=== PATIENT | female | born 1945 | race Caucasian/White ===

== ENCOUNTER → 2022-05-27 13:54 | Outpatient (REF) | payer MEDICARE, SELFPAY ==
--- NOTE | 2022-05-27 14:00 | CA_ITS ---
Transthoracic Echocardiogram Patient (Last, First, Middle): Tammie Butler, Gender: Female Date of : 1945 Age: 76 Procedure Date: 05/27/2022 Procedure Type: Transthoracic Echocardiogram Location: [place] Height: 172.72 cm Weight: 81.65 kg BSA: 1.95 m2 Heart Rate: bpm BP: 118 / 60 mmHg Spooling Operator: Referring MD: Diana Martinez NP Symptoms: PALPITATIONS Study Quality: Fair ECG Rhythm: Sinus Conclusions: - The left ventricular systolic function is mildly decreased. The calculated ejection fraction is 51% by biplane method. - There is mild global hypokinesis. - LV peak GLS -14.9% (diminished strain). - No obvious valvular pathology seen on this study. Findings Left Ventricle Normal left ventricular cavity size. There is mildly increased left ventricular wall thickness. The left ventricular systolic function is mildly decreased. The calculated ejection fraction is 51% by biplane method. There is mild global hypokinesis. Diastolic function is normal for age. LV peak GLS -14.9% (diminished strain). Right Ventricle Normal right ventricular cavity size and systolic function. Atria The left atrium is mildly dilated. The right atrium is normal in size. Aortic Valve There is a normal trileaflet aortic valve. There is mild calcification of the aortic valve. There is no aortic valve stenosis. There is no aortic valve regurgitation. Mitral Valve There is mild mitral annular calcification. There is no mitral valve regurgitation. There is no mitral valve stenosis. Pulmonic Valve There is mild pulmonic valve regurgitation. Tricuspid Valve Normal tricuspid valve structure. There is no tricuspid valve regurgitation. There is no evidence of pulmonary hypertension. Great Vessels The asc aorta is normal in size. Venous The inferior vena cava is normal in size and collapses greater than 50% with inspiration. Pericardium/Pleural There is a trivial pericardial effusion. Prior Study Comparison No prior study available for comparison. Recommendations, Care & Conclusions No obvious valvular pathology seen on this study. Measurements 2D Linear Measurements IVSd: 1.02 0.6-0.9/0.6-1.0 cm LVIDd: 4.85 3.9-5.3/4.2-5.9 cm LVIDd Index: 2.49 2.4-3.2/2.2-3.1 cm/m2 LVIDs: 3.55 2.0-3.6 cm LVPWd: 1.09 0.7-1.1 cm Ao Root: 2.70 2.1-3.5 cm LA Diam: 3.50 2.7-3.8/3.0-4.0 cm LAIDs Index: 1.79 1.5-2.3 cm/m2 LV Mass: 231.99 67-162/88-224 g LV Mass Index: 118.97 43-95/49-115 g/m2 LVOT Diam: 2.00 3.0+(-)1.3 cm 2D Systolic Function EF 4C: 50.90 >55% EF 2C: 50.70 >55% EF BiP: 51.30 >55% Mitral Valve MV Pk E: 0.53 MV PK A: 0.90 MV Decel Time: 319.00 E/A: 0.60 E'Lateral: 5.33 E'Medial: 3.48 E/E' Med: 15.30 E/E' Lat: 10.00 PHT: 93.00 MVA PHT: 2.37 Decel Williams: 1.66 Aortic Valve AoV Pk Steffen: 1.05 AoV Mn Steffen: 0.83 AoV VTI: 0.34 AoV Pk Grad: 4.00 Aov Mn Grad: 3.00 MAIRA Cont.VTI: 1.77 LVOT LVOT Pk Steffen: 0.75 LVOT Mn Steffen: 0.51 LVOT VTI: 0.19 LVOT Pk Grad: 2.00 LVOT Mn Grad: 1.00 LVOT Diam: 2.00 LVOT Area: 3.14 Diastolic Function MV Pk E: 0.53 MV Pk A: 0.90 E/A: 0.60 E'Medial: 3.48 E/E' Med: 15.30 E' Laterial: 5.33 E/E' Lat: 10.00 Right Ventricle TAPSE (mm): 29.00 TVS' Steffen: 12.00 Tricuspid Valve TR Pk Steffen: 2.05 TR Pk Grad: 17.00 RA Press: 3.00 RVSP: 20.00 Great Vessels Aorta Ao Root-2D: 2.70 2.0-3.7 cm Ao Asc: 3.30 2.1-3.4 cm Pulmonary Valve PV Pk Steffen: 0.98 Peak PV Grad: 4.00 Updated in Other Vendor System with Status of Final Juan Mendez MD electronically signed on 05/28/2022 11:12:42 AM with status of Final
== END ==
LOC: HO.CARD 13:54
PROVIDERS: PCP Nurse Practitioner Primary Care; Visit Provider Nurse Practitioner Adult Health
DX: R00.2 Palpitations (principal)
CPT/HCPCS: 93306; 93356

== ENCOUNTER 2023-11-28 14:14 | Emergency (ER) | payer MEDICARE, SELFPAY ==
--- NOTE | ~2023-11-28 | XR_ITS ---
EXAMINATION: XR ANKLE, LEFT CLINICAL INFORMATION: Repeat examination with lateral and mortise view, distal fibular fracture. COMPARISON: Radiograph left ankle earlier today. TECHNIQUE: Two views of the left ankle. FINDINGS: Nondisplaced fracture of the distal fibula at the level of the ankle mortise. Trace asymmetric widening of the lateral space of the ankle mortise. Surrounding soft tissue swelling. XR/XR ankle LT 2V IMPRESSION: Nondisplaced fracture of the distal fibula at the level of the ankle mortise with trace asymmetric widening of the lateral space of the ankle mortise. Electronically signed by: Parul Segal MD 11/28/2023 05:33 PM EDT
--- NOTE | ~2023-11-28 | XR_ITS ---
EXAMINATION: XR ANKLE, LEFT CLINICAL INFORMATION: Fall COMPARISON: None available. TECHNIQUE: AP, lateral, and mortise views of the left ankle. FINDINGS: Questionable cortical disruption along the posterior aspect of the distal fibula along the level ankle mortise versus summation artifact. Correlation with point tenderness. Ankle mortise is symmetric. Tiny plantar calcaneal heel spur. Enthesopathy at the Achilles tendon insertion site. Clusters and alignment are otherwise maintained. Soft tissue swelling about the ankle. XR/XR ankle LT min 3V IMPRESSION: 1. Questionable cortical disruption along the posterior aspect of the distal fibula along the level of the ankle mortise versus summation artifact, best appreciated on lateral projection. Correlation with point tenderness. 2. Ankle mortise is symmetric. 3. Tiny plantar calcaneal heel spur. 4. Enthesopathy at the Achilles tendon insertion site. 5. Soft tissue swelling about the ankle. Electronically signed by: Lino Ballesteros MD 11/28/2023 04:47 PM EDT
[2023-11-28 14:18] VITALS: BP 148/82; BP 159/74; PULSE 61; PULSE 63; RESP 18; TEMP 36.6; O2SAT 97; O2SAT 98; BMI 29.2
[2023-11-28] MEDS: Acetaminophen 325 MG TABLET 975 MG PO (14:54)
--- NOTE | 2023-11-28 17:10 | ED.LOWEXIN ---
HPI - Extremity Injury (Lower) General Chief Complaint: Extremity Injury, Lower Stated Complaint: FALL/LEFT ANKLE PAIN/NO THINNERS Time Seen by Provider: 11/28/23 16:57 Source: patient, family and EMS Mode of arrival: EMS Limitations: no limitations History of Present Illness ED Provider: Dr. Jessica Levy HPI Narrative: patient comes to the emergency room complaining of left ankle pain. Patient states that patient fell, sprain her ankle While doing yard work at home. Patient denies hitting her head or losing consciousness. Patient states that she needed 2 people to help her get up. Patient unable to bear weight. Patient denies being on blood thinners. Related Data Previous Rx's ?Medication ?Instructions ?Recorded tramadol 50 mg tablet 50 mg PO BID #8 tabs 11/28/23 Allergies Allergy/AdvReac Type Severity Reaction Status Date / Time epinephrine Allergy Shakiness Verified 11/28/23 14:24 Penicillins [PCN] Allergy Unknown Verified 11/28/23 14:24 Review of Systems Review of Systems: Constitutional : No Weight loss, No Fever, No Chills, No Night Sweats, No Fatigue, No Malaise ENT/Mouth : No Hearing loss, No Ear Pain, No Nasal Congestion, No Sinus Pain, No Hoarseness, No sore throat, No Rhinorrhea, No Swallowing Difficulty Eyes: No Eye Pain, No Swelling, No Redness, No Foreign Body, No Discharge, No Vision Changes Cardiovascular : No Chest Pain, No SOB, No Dyspnea on Exertion, No Orthopnea, No Edema, No Palpitations Respiratory : No Cough, No Sputum, No Wheezing, No Smoke Exposure, No Dyspnea Gastrointestinal : No Nausea, No Vomiting, No Diarrhea, No Constipation, No abdominal Pain, No Hematochezia, No Melena Genitourinary : no irregular bleeding, No Dysuria, No Urinary Frequency, No Hematuria, No Urinary Incontinence, No Urgency, No Flank Pain, No Urinary Flow Changes, No Hesitancy Musculoskeletal : complaining of left ankle pain, No Myalgias, No Joint Swelling Skin : No Skin Lesions, No rash Neuro : No Weakness, No Numbness, No Paresthesias, No Loss of Consciousness, No Dizziness, No Headache Psych : No Anxiety/Panic, No Depression, No SI/HI/AH/VH, No Social Issues, Heme/Lymph: No Bruising, No Bleeding,No Lymphadenopathy Endocrine : No Polyuria, No Polydipsia, No Temperature Intolerance [facility] Past Medical History Medical History (Updated 11/28/23 @ 17:48 by Jessica Levy MD) Hypertension Social History Social History Smoked in Last 30 Days: No Use of substances other than those prescribed or required for medical reasons: No Advance Directives: No Advance Directives Information Provided: Yes Physical Exam Vital Signs: Vital Signs: Last Vital Signs Temp 98 F 11/28/23 14:18 Pulse 63 11/28/23 14:18 Resp 18 11/28/23 14:18 BP 159/74 H 11/28/23 14:18 Pulse Ox 98 11/28/23 14:18 BMI result Body Mass Index 29.2 Const: Other: Appearance: Alert. Oriented X3. No acute distress. Eyes: Pupils equal, round and reactive to light. ENT: Pharynx normal. Neck: Normal inspection. Neck supple. No lymph nodes noted. No crepitus CVS: Normal heart rate and rhythm. Pulses normal. Normal S1 and S2 Respiratory: No respiratory distress. Breath sounds normal. No Wheezing. No rales Abdomen: Soft and nontender. No rigidity. No distention. Skin: Skin warm and dry. Normal skin color. Normal skin turgor. Extremities: patient has [id number] swelling around the lateral malleolus of the left ankle, no pain in the lateral edge of the left foot. Neuro: Oriented X 3. No motor deficit. No sensory deficit. Moving all extremities. No slurred speech. CN 2 through 12 grossly intact Psych: calm, cooperative, normal affect Medications Administered Discontinued Medications Generic Name Dose Route Start Last Admin Trade Name Chilo PRN Reason Stop Dose Admin Acetaminophen 975 mg 11/28/23 14:51 11/28/23 14:54 Acetaminophen 325 Mg Tablet PO 11/28/23 14:52 975 mg ONCE ONE Administration Tramadol HCl 50 mg 11/28/23 17:06 11/28/23 17:18 Tramadol Hcl 50 Mg Tablet PO 11/28/23 17:07 50 mg ONCE ONE Administration Medical Decision Making Medical Decision Making [facility] Narrative: - my interpretation of x-ray of the ankle, likely nondisplaced fracture of the fibula - patient was given p.o. acetaminophen with no significant improvement. Then patient was given tramadol. - Patient's foot put in a splint, crutches provided Differential Diagnosis Differential Diagnoses: The differential diagnosis associated with the presentation includes ( Ankle sprain, ankle fracture, dislocation, contusion) Independent Interpretation I performed an independent interpretation of an: Plain X-Ray Radiology Impression Discussion of test interpretation with radiology: I have reviewed the radiologist's reading. Radiologist Impression: Nondisplaced fracture of the distal fibula at the level of the ankle mortise. Trace asymmetric widening of the lateral space of the ankle mortise. Surrounding soft tissue swelling. XR/XR ankle LT 2V IMPRESSION: Nondisplaced fracture of the distal fibula at the level of the ankle mortise with trace asymmetric widening of the lateral space of the ankle mortise. Discharge Plan Discharge Clinical Impression: Closed fibular fracture Patient Disposition: Home, Self-Care Instructions: Ankle Fracture (ED) Additional Instructions: Please follow-up with your primary care physician tomorrow. If you have any worsening or new symptoms, please return to the emergency room or call 911 Prescriptions: New tramadol 50 mg tablet 50 mg PO BID Qty: 8 0RF Print Language: Surinamese
[2023-11-28] MEDS: traMADoL HCL 50 MG TABLET PO (17:18)
[2023-11-28 18:33] VITALS: BP 156/67; PULSE 67; RESP 18; TEMP 36.5; O2SAT 92
--- NOTE | 2023-11-28 18:34 | PC.NURSE ---
pt moves very slowly with the crutches and has a difficult time getting up off the bed, pt/ want to go home, not interested in PT/case management or snf. also not interested in an ambulance to get her home
[2023-11-28 18:42] VITALS: BP 156/67; PULSE 67; RESP 18; TEMP 36.5; O2SAT 92
== END 2023-11-28 18:44 | disposition home or self-care (01) ==
PROVIDERS: Emergency Provider Emergency Medicine; PCP Nurse Practitioner Primary Care
DX: S82.402A Unspecified fracture of shaft of left fibula, initial encounter for closed fracture (principal); M25.572 Pain in left ankle and joints of left foot; W19.XXXA Unspecified fall, initial encounter; Y93.89 Activity, other specified; Y92.89 Other specified places as the place of occurrence of the external cause; Y99.8 Other external cause status
CPT/HCPCS: 29515; 73600; 73610; 99284

== ENCOUNTER 2023-12-08 13:39 | Outpatient (AMB) | payer MEDICARE, SELFPAY ==
--- NOTE | 2023-12-08 13:53 | A.OFFVIS_ITS ---
Intake Visit Reasons: FC- LT ankle fracture Intake Note: Tammie a 77 year old female who presents today for an ER follow up of left ankle, DOI 11/28/23 Patient reports having a fall while on an incline at home, she presented to [facility] [place] day where xrays were taken and referred to orthopedics. Currently her most discomfort comes in the morning and at night. States that she passed out and fell off the toilet due to her pain and EMT had came and helped. She has been avoiding applying pressure. Numbness and tingling. States her tabatha bandage feels tight and is unable to use crutches. Allergies epinephrine Allergy (Verified 12/08/23 14:00) Shakiness Penicillins [PCN] Allergy (Verified 12/08/23 14:00) Unknown HPI HPI FC- LT ankle fracture: Details: 77-year-old female who presents to the office today for an ER follow-up of left ankle injury, 11/28/23. She reports she sustained a fall while on an incline at home. She was seen at ER the same day where x-rays were performed and she was referred to our office. She currently states she has pain and discomfort in her ankle that is aggravated in the mornings and at night. She also experiences numbness and tingling in her ankle. She has been avoiding applying pressure on her left ankle. She states her tabatha bandage feels tight and she is unable to use crutches. She reports she passed out and fell off the toilet due to her pain and EMT had come to helped. [facility] Medical History (Updated 12/08/23 @ 14:52 by Marc Vides PA-C) Hypertension Social History (Updated 12/08/23 @ 14:00 by ADRY Vizcaino) Patient Tobacco Use Status: Never used Tobacco Current occupational status: unemployed Review of Systems Const All systems reviewed & are unremarkable except as noted in HPI and below Physical Exam Const General: cooperative, healthy appearing, comfortable, no acute distress, well developed and alert Orientation/consciousness: patient oriented x3 HEENT Head: Yes normal to inspection, Yes normocephalic and Yes atraumatic Eyes General: appearance normal, both eyes and all related structures Resp Effort & Inspection: normal respiratory effort and able to speak in complete sentences Cardio Rate: regular rate Peripheral pulses: Peripheral pulses 2+ throughout GI Palpation (GI): Soft to palpation Skin Lesions: no lesions Rashes: no rashes Neuro General: patient oriented x3 Extrem Other: Left ankle: Normal to inspection with diffuse swelling over the medial and lateral malleolus with tenderness along the soft tissues. Mild discomfort along the posterior aspect of the ankle, no deformity along the Achilles tendon, negative Romero?s. No pain along the syndesmosis or anterior tibia. No laxity, NVI. Office Procedures AMB Fracture Care Fracture Billing Code: Fracture Billing Code Results Reviewed Results Reviewed: XR ankle LT 2V 11/28/23 IMPRESSION: Nondisplaced fracture of the distal fibula at the level of the ankle mortise with trace asymmetric widening of the lateral space of the ankle mortise. Assessment & Plan Assessment & Plan (1) Closed left ankle fracture: Code(s): S82.892A - Other fracture of left lower leg, initial encounter for closed fracture Category: Medical Plan She was placed in a tall boot weight bearing as tolerated. She can remove the boot for rest and hygiene. I recommend she performs elevation above the heart level to help with swelling. I would like to see her back in 4 weeks with new x- rays, sooner if needed. Orders: Referrals [facility] Referral S82.892A - Other fracture of left lower leg, initial encounter for closed fracture Patient Instructions: Scribed for Marc Vides PA-C, by Tj Schaefer medical charge entry specialist, on 12/08/2023 at 1:30 PM EST.? I, Marc Vides PA-C, have personally reviewed and agree with the information entered by the scribe. Coding Level of Care Code New Pt Level 3 (45472) Complex EM visit Add On G2211 Diagnoses Closed left ankle fracture S82.892A CPT Codes Fracture Care - Fracture Billing Code: Fracture Billing Code ([id number])
== END 2023-12-08 15:05 | disposition home or self-care (01) ==
LOC: HO.HOS 13:39
PROVIDERS: PCP Nurse Practitioner Primary Care; Visit Provider Physician Assistant
DX: S82.892A Other fracture of left lower leg, initial encounter for closed fracture (principal)
CPT/HCPCS: 99203; G2211

== ENCOUNTER → 2023-12-08 13:39 | Outpatient (BNVA) | payer MEDICARE, SELFPAY | PROVIDERS: PCP Nurse Practitioner Primary Care; Visit Provider Physician Assistant | DX: S82.892A Other fracture of left lower leg, initial encounter for closed fracture (principal); W19.XXXA Unspecified fall, initial encounter; Y93.9 Activity, unspecified; Y92.9 Unspecified place or not applicable; Y99.9 Unspecified external cause status | CPT/HCPCS: 99202 ==

== ENCOUNTER 2024-01-05 11:10 | Outpatient (REF) | payer MEDICARE, SELFPAY | END 2024-01-05 11:11 | disposition home or self-care (01) | LOC: HO.HOSX 11:10 | PROVIDERS: Visit Provider Physician Assistant | DX: M25.572 Pain in left ankle and joints of left foot (principal); S82.892D Other fracture of left lower leg, subsequent encounter for closed fracture with routine healing | CPT/HCPCS: 73610; 99212 ==

== ENCOUNTER 2024-01-05 11:27 | Outpatient (AMB) | payer MEDICARE, SELFPAY ==
--- NOTE | 2024-01-05 11:33 | A.OFFVIS_ITS ---
Vital Signs 01/05/24 11:45 Height 5 ft 8 in Weight 191 lb BMI 29.0 Intake Visit Reasons: OV- LT ankle fracture, DOI 11/28/23 Intake Note: Tammie a 77 year old female who presents today for a follow up of left ankle fx, DOI 11/28/23. X-rays updated. Patient reports she has had improvement, however she continues to have pain and swelling. Her swelling and pain makes it dif ficult to sleep at night. States left knee tendon rubbing. Finds some relief with swelling with use of icing and elevation. Allergies epinephrine Allergy (Verified 01/05/24 11:44) Shakiness Penicillins [PCN] Allergy (Verified 01/05/24 11:44) Unknown Medication List - Last Reconciled 01/05/24 by Marc Vides PA-C lisinopril 5 mg PO DAILY pregabalin 75 mg PO BID tramadol 50 mg PO BID HPI HPI OV- LT ankle fracture, DOI 11/28/23: Details: 78-year-old female who returns to the office today for a follow-up of left ankle fracture, 11/28/23. She states she has improvement however she continues to have pain and swelling in her ankle that makes her difficult to sleep at night. She also feels her left knee tendon is rubbing. She is working on home therapy as instructed. She has been walking with her boot with benefits. She finds mild swelling relief with icing and elevation. [facility] Medical History (Updated 01/05/24 @ 13:40 by Marc Vides PA-C) Hypertension Social History Patient Tobacco Use Status: Never used Tobacco Current occupational status: unemployed Review of Systems Const All systems reviewed & are unremarkable except as noted in HPI and below Physical Exam Vital Signs: BMI result Body Mass Index 29.0 Const General: cooperative, healthy appearing, comfortable, no acute distress, well developed and alert Orientation/consciousness: patient oriented x3 HEENT Head: Yes normal to inspection, Yes normocephalic and Yes atraumatic Eyes General: appearance normal, both eyes and all related structures Resp Effort & Inspection: normal respiratory effort and able to speak in complete sentences Cardio Rate: regular rate Peripheral pulses: Peripheral pulses 2+ throughout GI Palpation (GI): Soft to palpation Skin Lesions: no lesions Rashes: no rashes Neuro General: patient oriented x3 Extrem Other: Left ankle: Normal to inspection with trace swelling over the medial and lateral malleolus with tenderness along the soft tissues. No discomfort along the posterior aspect of the ankle, no deformity along the Achilles tendon, negative Romero?s. No pain along the syndesmosis or anterior tibia. No laxity, NVI. Results Reviewed Results Reviewed: XR ankle LT 2V obtained today show interval healing with intact ankle mortise Assessment & Plan Assessment & Plan (1) Closed left ankle fracture: Code(s): S82.892A - Other fracture of left lower leg, initial encounter for closed fracture Category: Medical Qualifiers: Encounter type: subsequent encounter Fracture healing: with routine healing Qualified Code(s): S82.892D - Other fracture of left lower leg, subsequent encounter for closed fracture with routine healing Plan She will transition from a boot to a lace up ankle brace. She will continue with physical therapy to work on ROM, gentle strength and proprioceptive training. I did update her physical therapy referral for home physical therapy and she will see me back in 6 weeks with x-rays if she continues to have pain, otherwise she will follow-up as needed. Orders: Orders XR ankle LT min 3V Today M25.572 - Pain in left ankle and joints of left foot Patient Instructions: Scribed for Marc Vides PA-C, by Tj Schaefer certified medical biller, on 01/05/2024 at 11:45 AM EST.? I, Marc Vides PA-C, have personally reviewed and agree with the information entered by the scribe. Coding Level of Care Code Global (63865) Diagnoses Closed fracture of left ankle with routine healing, subsequent encounter S82.892D Encounter type: subsequent encounter Fracture healing: with routine healing
[2024-01-05 11:45] VITALS: BMI 29.0
== END 2024-01-05 12:10 | disposition home or self-care (01) ==
PROVIDERS: PCP Nurse Practitioner Primary Care; Visit Provider Physician Assistant
DX: S82.892D Other fracture of left lower leg, subsequent encounter for closed fracture with routine healing (principal)
CPT/HCPCS: 99213

== ENCOUNTER → 2024-01-05 11:28 | Outpatient (BNV) | payer MEDICARE, SELFPAY | PROVIDERS: Visit Provider Radiology Diagnostic Radiology | DX: S82.402D Unspecified fracture of shaft of left fibula, subsequent encounter for closed fracture with routine healing (principal) | CPT/HCPCS: 73610 ==

== ENCOUNTER 2024-02-16 08:42 | Outpatient (REF) | payer MEDICARE, SELFPAY ==
--- NOTE | ~2024-02-16 | XR_ITS ---
CLINICAL HISTORY: M25.572 - Pain in left ankle and joints of left foot 3 view left ankle Comparison: DX - XR ANKLE LT MIN 3V - 01/05/24 11:28 EST Findings: Decreased bone mineralization. No acute fracture deformity. Degenerative spurring at the achilles tendon insertion and the origin of the plantar fascia on the calcaneus. Diffuse soft tissue swelling about the ankle. There is a probable small ankle joint effusion. No radiopaque foreign body. Ankle mortise is in anatomic alignment. IMPRESSION: 1. Small ankle joint effusion. No acute fracture deformity. This document has been electronically signed by: Bryan Amin MD on 02/18/2024 18:24:25
== END 2024-02-16 08:43 | disposition home or self-care (01) ==
LOC: HO.HOSX 08:42
PROVIDERS: Visit Provider Physician Assistant
DX: M25.572 Pain in left ankle and joints of left foot (principal); S82.892D Other fracture of left lower leg, subsequent encounter for closed fracture with routine healing
CPT/HCPCS: 73610; 99212

== ENCOUNTER 2024-02-16 10:28 | Outpatient (AMB) | payer MEDICARE, SELFPAY ==
--- NOTE | 2024-02-16 10:39 | A.OFFVIS_ITS ---
Vital Signs 02/16/24 10:44 Height 5 ft 8 in Weight 191 lb BMI 29.0 Intake Visit Reasons: OV- 6 WK f/u LT ankle fx w/xray, DOI 11/28/23 Intake Note: Tammie a 78 year old female who presents today for a follow up of left ankle fx, DOI 11/28/23. Patient reports improvement in pain and is able to walk without cane. She continues to have swelling that increases at the end of the day. States shooting pain in her great toe. She has concerns of a bumpy rash located at the lateral aspect of ankle. She has been using OTC cortisone cream which has helped. Patient discontinued use of ankle brace, as PT told her after a couple of days she can stop using. Allergies epinephrine Allergy (Verified 02/16/24 10:47) Shakiness Penicillins [PCN] Allergy (Verified 02/16/24 10:47) Unknown Medication List - Last Reconciled 02/16/24 by Marc Vides PA-C lisinopril 5 mg PO DAILY pregabalin 75 mg PO BID HPI HPI OV- 6 WK f/u LT ankle fx w/xray, DOI 11/28/23: Details: 78-year-old female returns to the office today for follow-up left ankle fracture date of injury 11/28/2023. She has discontinued the boot and the lace-up ankle brace. She continues to work on her exercise program without pain. She continues to have intermittent swelling. Overall she is doing well with activities. [facility] Medical History (Updated 01/05/24 @ 13:40 by Marc Vides PA-C) Hypertension Social History Patient Tobacco Use Status: Never used Tobacco Current occupational status: unemployed Review of Systems Const All systems reviewed & are unremarkable except as noted in HPI and below Physical Exam Vital Signs: BMI result Body Mass Index 29.0 Const General: cooperative, healthy appearing, comfortable, no acute distress, well developed and alert Orientation/consciousness: patient oriented x3 HEENT Head: Yes normal to inspection, Yes normocephalic and Yes atraumatic Eyes General: appearance normal, both eyes and all related structures Resp Effort & Inspection: normal respiratory effort and able to speak in complete sentences Cardio Rate: regular rate Peripheral pulses: Peripheral pulses 2+ throughout GI Palpation (GI): Soft to palpation Skin Lesions: no lesions Rashes: no rashes Neuro General: patient oriented x3 Extrem Other: Left ankle: Normal to inspection, no tenderness along the soft tissues. Mild swelling throughout the foot. No discomfort along the posterior aspect of the ankle, no deformity along the Achilles tendon, negative Romero?s. No pain along the syndesmosis or anterior tibia. No laxity, NVI. Results Reviewed Results Reviewed: XR ankle LT 2V obtained today show interval healing with intact ankle mortise Assessment & Plan Assessment & Plan (1) Closed left ankle fracture: Code(s): S82.892A - Other fracture of left lower leg, initial encounter for closed fracture Category: Medical Qualifiers: Encounter type: subsequent encounter Fracture healing: with routine healing Qualified Code(s): S82.892D - Other fracture of left lower leg, subsequent encounter for closed fracture with routine healing Plan: She will continue with home exercise program as discussed. Increase activities as tolerated. If symptoms arise or there is concern she will contact our office otherwise follow-up as needed. Orders: Orders XR ankle LT min 3V Today M25.572 - Pain in left ankle and joints of left foot Coding Level of Care Code Global (12947) Diagnoses Closed fracture of left ankle with routine healing, subsequent encounter S82.892D Encounter type: subsequent encounter Fracture healing: with routine healing
[2024-02-16 10:44] VITALS: BMI 29.0
== END 2024-02-16 11:01 | disposition home or self-care (01) ==
PROVIDERS: PCP Nurse Practitioner Primary Care; Visit Provider Physician Assistant
DX: S82.892D Other fracture of left lower leg, subsequent encounter for closed fracture with routine healing (principal)
CPT/HCPCS: 99213

== ENCOUNTER → 2024-02-16 10:33 | Outpatient (BNV) | payer MEDICARE, SELFPAY | PROVIDERS: Visit Provider Radiology Diagnostic Radiology | DX: M25.572 Pain in left ankle and joints of left foot (principal) | CPT/HCPCS: 73610 ==